=== PATIENT | male | born 1955 | race Caucasian/White ===

== ENCOUNTER 2024-08-02 18:11 | Inpatient (IN) | payer OTHER, SELFPAY ==
[2024-08-02] VITALS (7 sets, daily range): BP systolic 112–148; BP diastolic 68–86; BMI 37.6; BMI 38.7
--- NOTE | 2024-08-02 15:29 | ED.GENMED ---
History of Present Illness
General
Chief Complaint: Skin Problem
Source: patient
Exam Limitations: none
Time Seen by Provider: 08/02/24 15:23
Nursing documentation reviewed up to this point in time: agreed with
History of Present Illness
History of Present Illness:
69-year-old male with past medical history of SARA presenting to the emergency department today with concerns of right great toe redness and swelling he noticed first this morning and has dramatically worsened throughout the day. Now redness is
extending into the calf as well as his knee on the right side. Denies any fevers or systemic symptoms.
Past History
Past History
ED Past Medical History: Fibromyalgia, Other (Sleep apnea, diverticulosis, colon polyps) and Other (obesity)
ED Past Surgical History: Orthopedic
Social History
Tobacco: Non-smoker
Alcohol: Occasional
Drug: None
Personal:
Living: with family
Employment: Employed
Family History
Family History: Other (reviewed and noncontributory)
Phy Exam
Physical Exam
Physical Exam:
GENERAL: Alert , in no apparent distress
EYE: pupils equal and reactive
NECK: Supple, no significant adenopathy.
ENT: o/p clr, mmm.
CARDIAC: Regular rate and rhythm .
LUNGS: Clear breath sounds bilaterally, no acute respiratory distress, no wheezes/rales/rhonchi
ABDOMEN: Soft, without focal tenderness, no r/g, no cvat
NEUROLOGICAL: Alert and oriented, no focal neuro deficits
SKIN: Present circumferentially of the right great toe with extension throughout the dorsal aspect of the foot into the ankle and spreading into the lateral castillo as well as streaking through the anterior knee into the medial thigh.
MUSCULOSKELETAL: No edema, well perfused.
PSYCH: Normal and appropriate interaction.
Course
Orders/Labs/Results
Orders:
Orders
08/02/24 15:27
CR Foot - Right Min 3 Views Urgent
Comment:
Reason For Exam: ghreat toe infection
08/02/24 15:43
Blood Culture Q30M
KATHRYN Source: Blood/Venous
Specimen Description:
Blood Culture Q30M
KATHRYN Source: Blood/Venous
Specimen Description:
08/02/24 15:44
CBC/With Diff [Complete Blood Count/With Diff] Urgent
CMP [Comprehensive Metabolic Panel] Urgent
CRP [C-Reactive Protein] Urgent
ESR [Erythrocyte Sed Rate] Urgent
Lactic Acid Urgent
08/02/24 15:50
Vancomycin [Vancocin] 2,000 mg 0.9% Sodium Chloride 500 ml [Nss] 500 ml IV NOW
08/02/24 15:51
Clindamycin 600 mg/50 ml [Cleocin] 600 mg in 50 ml IV NOW
08/02/24 16:19
Acetaminophen [Tylenol] 1,000 mg .ROUTE .STK-MED ONE
08/02/24 16:23
Acetaminophen [Tylenol] 1,000 mg PO NOW STA
Abnormal Lab Results
08/02/24
15:44
WBC 12.2 H 10^3/uL
(4.8-10.8)
MCH 31.8 H pg
(27.0-31.0)
Abs Immat Gran (auto) 0.1 H 10^3/uL
(0-0.05)
Absolute Neuts (auto) 10.7 H 10^3/uL
(1.4-6.5)
Absolute Lymphs (auto) 0.7 L 10^3/uL
(1.2-3.4)
Absolute Monos (auto) 0.7 H 10^3/uL
(0.1-0.6)
Neutrophils % 88.1 H %
(42.2-75.2)
Lymphocytes % 5.6 L %
(20.5-51.1)
Chloride 108 H mmol/L
(98-107)
BUN 24 H mg/dl
(9-20)
Lactic Acid 2.2 H mmol/L
(0.7-2.0)
Total Bilirubin 1.8 H mg/dl
(0.2-1.3)
C-Reactive Protein 193.40 H mg/L
(0.0-10.00)
08/02/24 15:44
08/02/24 15:44
Vital Signs
Initial and Last Documented VS:
Initial Vital Signs
Temp Pulse Resp BP Pulse Ox
99 F 89 16 148/81 97
08/02/24 15:06 08/02/24 15:06 08/02/24 15:06 08/02/24 15:06 08/02/24 15:06
Last Documented Vital Signs
Temp Pulse Resp BP Pulse Ox
99 F 89 16 123/76 95
08/02/24 15:06 08/02/24 15:06 08/02/24 15:06 08/02/24 16:00 08/02/24 16:00
MDM/Problems Addressed
MDM/Problems Addressed:
6-year-old male presenting to the emergency department with rapid access redness and swelling to the right lower extremity. Initially starting to the right great toe this morning but extending down to the right lateral castillo as well as streaking
into the right middle thigh. Patient generally well-appearing. X-ray without signs of emergent findings slight white count very slight lactic acid elevation. Was given fluids as well as IV antibiotics. CRP was significantly elevated.
Consideration of necrotizing fasciitis was thought of however seem to be unlikely no crepitus no rapid extension here seems to be receding after lighting the redness. Will be admitted for further treatment.
*Critical Care Note
Total Time (30-74mins, 75-104mins- exclusive of procedures): Not Applicable
ED Attending Note
-
Portions of this chart may have been created with voice recognition software.� Occasional wrong word or��sound alike� substitutions may have occurred due to the inherent limitations of voice recognition software.
Discharge Plan
Departure
Patient Disposition: Admit
Date of Disposition: 08/02/24
Time of Disposition: 17:03
Admit to: Med/Surg
Admit to doctor: Deneen
Presentation/result/management discussed w/ accepting MD/DO: Hospitalist
Patient with high blood pressure during this ER visit?: No
Condition: Good
Covid-19: Not Applicable
Discharge Problem:
Cellulitis of leg, right
Prescriptions:
No Action
multivitamin [Multi-Day] 1 EACH tablet
1 ea PO DAILY
ascorbic acid (vitamin C) [Vitamin C] 500 MG tablet
1,000 mg PO DAILY
amino acids [R.N.A.-180] 1 TAB tablet
1 tab PO DAILY
cholecalciferol (vitamin D3) [Vitamin D3] 1,000 UNIT capsule
1,000 unit PO DAILY
coenzyme Q10 [Co Q-10] 100 MG capsule
100 mg PO DAILY
omega 9-pfb-nvs-fish oil 1 EACH capsule
1 ea PO DAILY
glucosamine thomas 2KCl-chondroit 1 EACH tablet
2 ea PO BID
Tribulex
1 tab PO DAILY
Electrolyte Formula Unknown Name
1 tab PO DAILY
levofloxacin 500 MG tablet
500 mg PO DAILY Qty: 5 0RF
Referrals:
NONE,* [Family Provider, Internal Medicine]
Interventions
Interventions:
*Risk Screen - Suicide Last Done: 08/02/24 15:08
*General Assessment Last Done: 08/02/24 15:49
*Neglect/Abuse Screening Last Done: 08/02/24 15:08
*ED- Fall Risk Assessment Last Done: 08/02/24 15:49
*ED COVID-19 Vaccine History Last Done: 08/02/24 15:49
ED-Musculoskeletal Assessment Last Done: 08/02/24 15:47
Discharge Date and Time
Print Language: SAMMARINESE
[2024-08-02 15:51] LABS: % Basophils 0.3 % (0-2); % Eosinophils 0.2 % (0-6); % Immature Granulocytes 0.4 % (0-0.5); % Lymphocytes 5.6 % (20.5-51.1); % Monocytes 5.4 % (1.7-9.3); % Neutrophils 88.1 % (42.2-75.2); Absolute Immature Granulocytes 0.1 10^3/uL (0-0.05); Absolute Lymphocytes 0.7 10^3/uL (1.2-3.4); Absolute Monocytes 0.7 10^3/uL (0.1-0.6); Absolute Neutrophils 10.7 10^3/uL (1.4-6.5); Hematocrit 43.9 % (39.0-52.0); Hemoglobin 15.4 g/dL (13.0-18.0); Mean Corp Hgb Conc. 35.1 g/dL (33.0-37.0); Mean Corpuscular Hgb 31.8 pg (27.0-31.0); Mean Corpuscular Volume 90.7 fL (80.0-94.0); Mean Platelet Volume 8.1 fL (7.4-10.4); Nucleated Red Blood Cells % 0 % (-); Platelet Count 138 10^3/uL (130-400); Red Blood Cell Count 4.84 10^6/uL (4.70-6.10); Red Cell Dist. Width 12.2 % (11.5-14.5); White Blood Cell Count 12.2 10^3/uL (4.8-10.8)
[2024-08-02 16:04] LABS: ALT (SGPT) 24 U/L (0-50); AST (SGOT) 28 U/L (17-59); Albumin 4.1 g/dl (3.5-5.0); Alkaline Phosphatase 43 U/L (38-126); Blood Urea Nitrogen 24 mg/dl (9-20); Calcium 9.3 mg/dl (8.4-10.2); Carbon Dioxide 28 mmol/L (22-30); Chloride 108 mmol/L (98-107); Estimated Creatinine Clearance 88 ml/min; Glucose 95 mg/dl (70-99); Lactic Acid 2.2 mmol/L (0.7-2.0); Sodium 140 mmol/L (135-145); Total Bilirubin 1.8 mg/dl (0.2-1.3); eGFR > 60.00
[2024-08-02] MEDS: TYLENOL 1000 MG PO (16:23)
[2024-08-02 16:25] LABS: Erythrocyte Sed Rate 16 mm/hour (0-20)
[2024-08-02] MEDS: CLEOCIN 50 IV ×2 (16:26→21:40)
[2024-08-02] MEDS: VANCOCIN 540 MG IV (16:56)
--- NOTE | 2024-08-02 17:21 | HPS.HSE ---
Family Physician
-
Family Physician: * NONE
Chief Complaint
-
right great toe redness and swelling
History of Present Illness
69-year-old male with past medical history of SARA and fibromyalgia presenting to the emergency department today with concerns of right great toe redness and swelling. patient noted split at the end of the right great which got healed with
Neosporin, but the swelling persisted.today morning he noticed redness, worsening swelling. the redness extended to calf, knees and thigh throughout the day. denied fever, chills, chest pain, sob. denied abdominal pain,n,v,d. denied dysuria or
hematuria.
Patient received clinda and vancomycin in ER. Admitting for further management
Medical History
Past Medical History
Past Medical History: Reports Other
Additional Past Medical History:
Fibromyalgia, sleep apnea, diverticulosis, colon polyps history of cataracts, history of bilateral retinal detachment
Past Surgical History: Reports Other
Additional Past Surgical History:
Right hand surgery, bilateral cataract surgery, bilateral retinal surgery
Social History
Tobacco: Non-smoker
Alcohol: Occasional
Drug: None
Personal:
Living: With Family
Family History
Family History: Not pertinent
Allergies / Home Medications
Allergies reflects when Allergies were last updated in [facility].
Home Medications with original date entered in [facility]
Allergy/Medication List:
Allergies
Allergy/AdvReac Type Severity Reaction Status Date / Time
amoxicillin Allergy Mild Hives Verified 08/02/24 15:08
Home Medications
Electrolyte Formula Unknown Name 6 tab PO DAILY 11/19/15
Tribulex 2 tab PO DAILY 11/19/15
amino acids (R.N.A.-180 tablet) 1 tab PO DAILY 11/19/15
ascorbic acid (vitamin C) 500 mg tablet (Vitamin C) 1,000 mg PO DAILY 11/19/15
cholecalciferol (vitamin D3) 25 mcg (1,000 unit) capsule (Vitamin D3) 1,000 unit PO BID 11/19/15
coenzyme Q10 100 mg capsule (Co Q-10) 100 mg PO BID 11/19/15
glucosamine sulf dipotassium Cl 500 mg-chondroitin sulf 400 mg tablet 2 tab PO BID 11/19/15
fexofenadine 180 mg tablet 180 mg PO DAILYPRN PRN allergies 08/02/24
naproxen sodium 220 mg tablet (Aleve) 440 mg PO DAILYPRN PRN mild pain 08/02/24
omega-3 fatty acids-fish oil 684 mg-1,200 mg capsule,delayed release 1 cap PO DAILY 08/02/24
therapeutic multivitamin 1 tab PO DAILY 08/02/24
Review of Systems
-
Constitutional: Reports No Symptoms
EENT: Reports No Symptoms
Respiratory: Reports No Symptoms
Cardiac: Reports No Symptoms
Abdomen/GI: Reports No Symptoms
: Reports No Symptoms
Musculoskeletal: Reports No Symptoms
Skin: Reports Other (Right great toe swelling, redness)
Neurological: Reports No Symptoms
Endocrine: Reports No Symptoms
Hematologic/Lymphatic: Reports No Symptoms
Psych: Reports No Symptoms
Physical Exam
Vital Signs
Vital Signs
Temp Pulse Resp BP Pulse Ox
99 F 89 16 122/71 97
08/02/24 15:06 08/02/24 15:06 08/02/24 15:06 08/02/24 17:00 08/02/24 17:00
Physical Exam
General: Well Developed, Well Nourished and No Apparent Distress
HEENT: NormoCephalic, Moist mucous membranes and Atraumatic
Respiratory: Clear
Cardiac: S1/S2 and Regular Rhythm; No Murmur or Rub
GI: Soft, Non Tender, Non Distended and Normal Bowel Sounds; No Organomegaly
Rectal: Deferred by Provider
Musculoskeletal: No Clubbing, No Cyanosis and No Edema
Skin: Rash and Other (Right great toe swelling, redness extending from the toe to the thigh)
Neuro: AO x 3 and Nonfocal/grossly intact
Psych: Calm
Laboratory Results
-
08/02/24 15:44
08/02/24 15:44
Laboratory Results
Lactic Acid 2.2 mmol/L (0.7-2.0) H 08/02/24 15:44
Total Bilirubin 1.8 mg/dl (0.2-1.3) H 08/02/24 15:44
AST 28 U/L (17-59) 08/02/24 15:44
ALT 24 U/L (0-50) 08/02/24 15:44
Alkaline Phosphatase 43 U/L (38-126) 08/02/24 15:44
Data Reviewed
-
Lab Data: Labs Reviewed by me
Impression/Plan
-
# Right lower extremity soft tissue infection
- Sepsis as evident by WBC 12.2, lactic 2.2, CRP 193.40
- Foot x-ray pending
- IV clindamycin continued
- Tylenol as needed for fever or pain
# Obstructive sleep apnea on CPAP
# History of fibromyalgia
# DVT prophylaxis
- Lovenox subcu
# CODE STATUS
- Full code
--- NOTE | 2024-08-02 18:06 | W.PN.UPDATE ---
Update Note
Progress Note Update
This is an addendum to H&P written by Magdalena Mar on 08/02/2024.� Patient seen and examined independently with DRY KILN OPERATOR.
69-year-old male past medical history of neuropathy of second toes bilaterally, obstructive sleep apnea, fibromyalgia presenting with right great toe redness and swelling spreading up to the knee today since having a skin aplit on his right toe a
week ago.� No fever.
CRP of 193.
Foot x-ray pending.
Patient with cellulitis of right lower extremity.� Given vancomycin and clindamycin.� Continue clindamycin.
[2024-08-02] MEDS: LOVENOX 40 MG SC (19:32)
--- NOTE | 2024-08-02 20:13 | PTCARENOTE ---
Assumed care of pt from previous nurse. pt denies pain. RLE redness and edema noted, markings present, no change noted per dayshift nurse. Pt call verde is within reach, pt rings keron. will cont to monitor.
[2024-08-03] MEDS: ULTRAM 25 MG PO ×3 (03:40→22:39)
[2024-08-03] MEDS: CLEOCIN 50 IV ×4 (03:57→21:42)
[2024-08-03 07:00] VITALS: BP 126/91
--- NOTE | 2024-08-03 08:32 | W.PN.HOSP.TC ---
Today's Communication/Plan
-
see plan
Assessment / Plan
Assessment / Plan
Gen: NAD, AAOx3.
Eyes: EOMI, PERRLA, no scleral icterus.
Neck: supple.
CV: RRR, +S1/S2, no m/r/g.
Resp: CTAB, no rales, wheezes, or rhonchi.
Abd: +BS, soft, NT, ND
Skin: Right great toe and right lower extremity cellulitis
Neuro: CN 2-12 intact, non-focal.
Psych: Normal mood and affect.
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 Progressed. Mild hallux valgus deformity. Stable.
Sepsis due to RLE cellulitis:
-cont Clindamycin
-c/s ID
-follow BCxs
Other problems:
SARA on CPAP
Obesity due to excess calories
Fibromyalgia
FULL/Lovenox
Anticipated Discharge: 24 - 48 hours
Subjective/Interval History
-
Date of Service: August 03, 2024
Patient states right lower extremity cellulitis has progressed approximately into his right leg. He now has a stinging sensation in his right great toe and right lower extremity.
Objective Data
-
Vital Signs:
Vital Signs
Temp Pulse Resp BP Pulse Ox
99.5 F 121 18 126/91 96
08/03/24 07:00 08/03/24 07:00 08/03/24 07:00 08/03/24 07:00 08/03/24 07:00
[2024-08-03] MEDS: TYLENOL 650 MG PO (09:15)
--- NOTE | 2024-08-03 11:17 | CM ---
Patient seen bedside, initial assessment completed. Patient is a 69-year-old male with past medical history of SARA and fibromyalgia presenting to the emergency department today with concerns of right great toe redness and swelling.
Patient resides w/ spouse in a singe story rancher style home, 8 steps to enter. Independent w/ ambulation and ADLs. Patient has a CPAP that he uses at night supplied by [facility]. Denies SNF/HC hx. OP therapy in the past.
Address, point of contact and insurance verified
PCP: Patient does not have a PCP at this time. Former PCP moved to [place]. Spouse located a new PCP in [place] that patient will consider
Pharmacy: [facility]
Plan: Home, no needs anticipated
--- NOTE | 2024-08-03 11:53 | CON.ID ---
Consultation
-
Date/Time Consultation Requested: August 03, 2024 [id number]
Date/Time Consultation Performed: August 03, 2024 1155
Requesting Provider: Dr. Conor Low
Performing Provider: Dr. Carline Ceja
Reason for Consultation: Cellulitis
Chief Complaint / Past History
Chief Complaint
Right toe and leg redness.
History of Present Illness
69-year-old male with history of sleep apnea who presented to the hospital on August 02 due to redness streaking from his toe all the way up to his knee. He reports he has dry skin and developed a fissure on the plantar side of his right great toe
last week. He applied Neosporin to the crack which eventually healed. However, the big toe started to become red and swollen. Yesterday morning, the redness extended from the toe up his leg to his knee. He therefore came to the ER.
White count was 12.2. Foot x-ray showed osteoarthritis of the first MTP joint. Patient received vancomycin and clindamycin in the ER. He is currently on clindamycin. Patient denies fevers or chills. He does walk barefoot at home.
Past History
Additional Past Medical History:
Sleep apnea on CPAP
Neuropathy of bilateral toes
Fibromyalgia
Diverticulosis
Additional Past Surgical History:
Bilateral retinal detachment repair
Right hand surgery
Allergy History:
amoxicillin Allergy (Mild, Verified 08/02/24 15:08)
20 years ago, mild rash
Medications Reviewed: Yes
Current Antibiotics:
Clindamycin
Social History
Tobacco: Non-Smoker
Alcohol: Occasional
Drug: None
Personal:
Employment: Employed (line driver)
Family History
Family History: Not Pertinent
Review of Systems
Review of Systems
General: Negative Fever, Chills or Change in Appetite
Cardiovascular: Negative Chest Pain or Dyspnea
Respiratory: Negative Dyspnea or Cough
Gasteroenterology: Negative Nausea, Vomiting or Diarrhea
Genital / Urological: Negative Dysuria or Flank Pain
Endocrine: Negative Weakness
All systems: All other systems were reviewed and were negative
Vital Signs
Temp Pulse Resp BP Pulse Ox
99.5 F 121 18 126/91 96
08/03/24 07:00 08/03/24 07:00 08/03/24 07:00 08/03/24 07:00 08/03/24 07:00
Physical Exam
Physical Exam
Constitutional: No Acute Distress and Obese
Eyes: No Conjunctival Hemorrhage and Sclera Anicteric
Cardiovascular: Regular Rate and S1/S2
Pulmonary: Clear
Gastrointestinal: Soft, Non Tender, Non Distended and Normal Bowel Sounds
Genito-Urinary: Negative Suprapubic Tenderness or CVA Tenderness
Extremities: Edema (RLE foot to castillo 3+) and Erythema (Right great toe edematous, erythematous to forefoot to castillo with dark red patchy erythema up to knee, + warmth)
Neurological: AO x 3
Lab / Diagnostic Study Results
08/02/24 15:44
08/02/24 15:44
Abs Immat Gran (auto) 0.1 10^3/uL (0-0.05) H 08/02/24 15:44
Absolute Neuts (auto) 10.7 10^3/uL (1.4-6.5) H 08/02/24 15:44
Absolute Lymphs (auto) 0.7 10^3/uL (1.2-3.4) L 08/02/24 15:44
Absolute Monos (auto) 0.7 10^3/uL (0.1-0.6) H 08/02/24 15:44
Absolute Basos (auto) 0.0 10^3/uL (0-0.2) 08/02/24 15:44
Immature Gran % 0.4 % (0-0.5) 08/02/24 15:44
Neutrophils % 88.1 % (42.2-75.2) H 08/02/24 15:44
Lymphocytes % 5.6 % (20.5-51.1) L 08/02/24 15:44
Monocytes % 5.4 % (1.7-9.3) 08/02/24 15:44
Eosinophils % 0.2 % (0-6) 08/02/24 15:44
Basophils % 0.3 % (0-2) 08/02/24 15:44
ESR 16 mm/hour (0-20) 08/02/24 15:44
Lactic Acid 2.2 mmol/L (0.7-2.0) H 08/02/24 15:44
C-Reactive Protein 193.40 mg/L (0.0-10.00) H 08/02/24 15:44
Microbiology Results
Micro:
08/02/24 15:43 Blood Culture - Pending
Blood/Venous
08/02/24 15:43 Blood Culture - Pending
Blood/Venous
08/02/24 Foot XRAY: Osteoarthritis of the first MTP joint. Progressed.
Assessment / Plan
# Severe non-purulent cellulitis of RLE
# Leukocytosis
# hx mild PCN allergy
- Suspect Group A strep.
- Add ceftriaxone 2g IV q24.
- Can continue short course IV clindamycin for now.
- Follow clinically.
[2024-08-03] MEDS: ROCEPHIN 2000 MG IV (13:17)
[2024-08-03] MEDS: STERILE WATER FOR INJECTION 20 ML IV (13:17)
[2024-08-03 15:00] VITALS: BP 145/78
[2024-08-03] MEDS: LOVENOX 40 MG SC (17:16)
[2024-08-03 23:06] VITALS: BP 124/82
[2024-08-04] MEDS: CLEOCIN 50 IV ×2 (03:31→10:32)
[2024-08-04 07:00] VITALS: BP 126/85
[2024-08-04 07:29] LABS: Hematocrit 41.4 % (39.0-52.0); Hemoglobin 13.8 g/dL (13.0-18.0); Mean Corp Hgb Conc. 33.3 g/dL (33.0-37.0); Mean Corpuscular Hgb 31.7 pg (27.0-31.0); Mean Platelet Volume 8.9 fL (7.4-10.4); Platelet Count 159 10^3/uL (130-400); Red Blood Cell Count 4.36 10^6/uL (4.70-6.10); Red Cell Dist. Width 12.3 % (11.5-14.5); White Blood Cell Count 8.1 10^3/uL (4.8-10.8)
[2024-08-04 08:19] LABS: Blood Urea Nitrogen 16 mg/dl (9-20); Calcium 8.4 mg/dl (8.4-10.2); Carbon Dioxide 27 mmol/L (22-30); Chloride 107 mmol/L (98-107); Estimated Creatinine Clearance 98 ml/min; Glucose 105 mg/dl (70-99); Sodium 139 mmol/L (135-145); eGFR > 60.00
--- NOTE | 2024-08-04 11:29 | W.PN.ID1 ---
Addendum entered and electronically signed by Carline Ceja MD 08/04/24 12:50:
Patient pulled an engorged tick from the back of his thigh. I examined the tick in the container. Could be an adult dog tick, less likely adult make Ixodes. Will give one dose of doxycycline 200mg po x 1.
Original Note:
Date of Service
Date of Service: August 04, 2024
Today's Communication
See below.
Assessment / Plan
# Severe non-purulent cellulitis of RLE, improved
. source from right great toe skin fissure
# Leukocytosis resolved
# Cough from allergy
# hx mild PCN allergy
- Suspect Group A strep.
- Continue ceftriaxone 2g IV q24 (d2)
- DC IV clindamycin (d3)
- Knee high ramakrishna-wrap compression
-Ordered cetirizine for allergy.
Chief Complaint
-: Cellulitis
Subjective / Review of Systems
+ discomfort ambulating.
+ dry cough from allergies
Vital Signs / Physical Exam
Vital Signs
Vital Signs
Temp Pulse Resp BP Pulse Ox
98.2 F 78 20 126/85 98
08/04/24 07:00 08/04/24 07:00 08/04/24 07:00 08/04/24 07:00 08/04/24 07:15
Physical Exam
Constitutional: No Acute Distress and Obese
Cardiovascular: Regular Rate and S1/S2
Pulmonary: Clear
Gastrointestinal: Soft, Non Tender and Non Distended
Extremities: Edema (RLE 3+ edema) and Erythema (R foot to knee - erythema now darker, receding from line; toe not longer erythematous)
Skin: Dry (R plantar foot)
Neurological: AO x 3
Objective Data
Lab Data
Lab Results
08/04/24 06:36
08/04/24 06:36
ESR 16 mm/hour (0-20) 08/02/24 15:44
Estimated Creat Clear 98 ml/min 08/04/24 06:36
Lactic Acid 2.2 mmol/L (0.7-2.0) H 08/02/24 15:44
Total Bilirubin 1.8 mg/dl (0.2-1.3) H 08/02/24 15:44
AST 28 U/L (17-59) 08/02/24 15:44
ALT 24 U/L (0-50) 08/02/24 15:44
Alkaline Phosphatase 43 U/L (38-126) 08/02/24 15:44
C-Reactive Protein 193.40 mg/L (0.0-10.00) H 08/02/24 15:44
Most recent labs reviewed.
Micro Results:
08/02/24 15:43 Blood Culture - Preliminary
Blood/Venous No Growth in 24 hours- Final report to follow
08/02/24 15:43 Blood Culture - Preliminary
Blood/Venous No Growth in 24 hours- Final report to follow
08/02/24 Foot XRAY: Osteoarthritis of the first MTP joint. Progressed.
--- NOTE | 2024-08-04 11:44 | W.PN.HOSP.TC ---
Today's Communication/Plan
-
Continue IV antibiotics.
Assessment / Plan
Assessment / Plan
Physical exam:
General: Acutely ill
HEENT: Normocephalic, Atraumatic and Moist Mucous Membranes
Respiratory: Clear to Auscultation; Negative Wheezes, Rales or Rhonchi
Cardiac: Regular Rhythm and S1/S2
GI: Soft, Nontender and Nondistended
Musculoskeletal: Right lower extremity erythema and tenderness from right great toe up to two thirds of the distal leg, warmth and tenderness. No Clubbing, No Cyanosis
Neuro: Awake, Alert and Oriented, no neurological deficit
Psych: Calm
A/P:
Sepsis due to right lower extremity cellulitis:
Continue IV ceftriaxone 2 gr daily
Discontinue clindamycin
WBC from 12.2 down to 8.1 today
Compression therapy and elevation of leg
Discussed with over the phone, Adwoa
Tick bite:
Oral doxycycline 200 mg oral x 1
Discussed with ID
DVT prophylaxis:
Lovenox SQ
Other medical problems:
SARA-continue CPAP
Obesity-lifestyle changes modifications
Fibromyalgia
CODE STATUS:
Full code
Anticipated Discharge: 24 - 48 hours
Subjective/Interval History
-
Date of Service: August 04, 2024
Patient complains of discomfort on right lower extremity. He tells me he pulled a tick from his leg today and he has it on the container today. Afebrile
Objective Data
-
Labs:
Laboratory Results
08/04/24
06:36
WBC 8.1
Hgb 13.8
Hct 41.4
Plt Count 159
Sodium 139
Potassium 4.0
Chloride 107
Carbon Dioxide 27
BUN 16
Creatinine 1.0
Glucose 105 H
Calcium 8.4
Vital Signs:
Vital Signs
Temp Pulse Resp BP Pulse Ox
98.2 F 78 20 126/85 98
08/04/24 07:00 08/04/24 07:00 08/04/24 07:00 08/04/24 07:00 08/04/24 07:15
I&O
08/03/24 08/04/24 08/05/24
06:59 06:59 06:59
Intake Total 1140 / 1140
Balance 1140 / 1140
[2024-08-04] MEDS: ZYRTEC 10 MG PO (12:41)
[2024-08-04] MEDS: LAC HYDRIN, AM LACTIN LOTION 1 APPLIC TOPICAL ×2 (12:41→19:20)
[2024-08-04] MEDS: VIBRAMYCIN 200 MG PO (13:19)
[2024-08-04] MEDS: STERILE WATER FOR INJECTION 20 ML IV (13:20)
[2024-08-04] MEDS: ROCEPHIN 2000 MG IV (13:20)
[2024-08-04 15:00] VITALS: BP 130/87
--- NOTE | 2024-08-04 15:33 | W.PN.UPDATE ---
Update Note
Progress Note Update
Pt c/o right medial thigh pain and redness.
Exam: Right upper medial thigh large area of erythema.
Add linezolid 600mg po bid for gram positive coverage and toxin inhibitor properties.
[2024-08-04] MEDS: ULTRAM 25 MG PO (15:42)
[2024-08-04] MEDS: ZYVOX 600 MG PO ×2 (16:58→22:18)
[2024-08-04] MEDS: LOVENOX 40 MG SC (17:02)
[2024-08-04] MEDS: TYLENOL 650 MG PO (22:18)
[2024-08-04 23:02] VITALS: BP 134/84
[2024-08-05 07:00] VITALS: BP 147/87
[2024-08-05] MEDS: LAC HYDRIN, AM LACTIN LOTION 1 APPLIC TOPICAL ×2 (08:08→19:19)
[2024-08-05] MEDS: ZYVOX 600 MG PO ×2 (08:09→19:19)
[2024-08-05] MEDS: ZYRTEC 10 MG PO (08:09)
--- NOTE | 2024-08-05 08:47 | W.PN.HOSP.TC ---
Addendum entered and electronically signed by Robert Mack MD 08/05/24 17:55:
Updated over the phone today
Original Note:
Today's Communication/Plan
-
Continue antibiotics
Assessment / Plan
Assessment / Plan
Physical exam:
General: Acutely ill
HEENT: Normocephalic, Atraumatic and Moist Mucous Membranes
Respiratory: Clear to Auscultation; Negative Wheezes, Rales or Rhonchi
Cardiac: Regular Rhythm and S1/S2
GI: Soft, Nontender and Nondistended
Musculoskeletal: Right lower extremity erythema and tenderness from right great toe up to two thirds of the distal leg, warmth and tenderness. No Clubbing, No Cyanosis
Neuro: Awake, Alert and Oriented, no neurological deficit
Psych: Calm
A/P:
Sepsis due to right lower extremity cellulitis:
Continue IV ceftriaxone 2 gr daily
Discontinued clindamycin by ID
Started on Zyvox 600 mg po bid per ID yesterday
WBC from 12.2 down to 8.1 yesterday
Compression therapy and elevation of leg
Discussed with over the phone yesterday, Adwoa
Tick bite:
Oral doxycycline 200 mg oral x 1
Discussed with ID
DVT prophylaxis:
Lovenox SQ
Other medical problems:
SARA-continue CPAP
Obesity-lifestyle changes modifications
Fibromyalgia
CODE STATUS:
Full code
Anticipated Discharge: 24 - 48 hours
Subjective/Interval History
-
Date of Service: August 05, 2024
Patient still have bright erythema and receding in the distal part but not so much proximally. Afebrile
Objective Data
-
Vital Signs:
Vital Signs
Temp Pulse Resp BP Pulse Ox
97.9 F 78 20 147/87 96
08/05/24 07:00 08/05/24 07:00 08/05/24 07:00 08/05/24 07:00 08/05/24 07:00
I&O
08/04/24 08/05/24 08/06/24
06:59 06:59 06:59
Intake Total 1140 / 1140 960 / 960
Balance 1140 / 1140 960 / 960
--- NOTE | 2024-08-05 10:28 | W.PN.ID1 ---
Date of Service
Date of Service: August 05, 2024
Today's Communication
Continue linezolid and ceftriaxone.
Assessment / Plan
# Severe non-purulent cellulitis of RLE
. source from right great toe skin fissure
# Leukocytosis resolved
# hx mild PCN allergy
- Suspect Group A strep.
- Continue Linezolid 600mg po bid (d2) for gram positive coverage and toxin inhibitor properties.
- Continue ceftriaxone 2g IV q24 (d3) for now
- Knee high ramakrishna-wrap compression
# Engorged tick exposure
- s/p prophylactic doxycycline 200mg po x 1 on 08/04
- Discussed importance of insect prevention.
# Cough from allergy
- improved on cetirizine
Chief Complaint
-: Cellulitis
Subjective / Review of Systems
Leg not as painful.
Cough better on Zyrtec
Vital Signs / Physical Exam
Vital Signs
Vital Signs
Temp Pulse Resp BP Pulse Ox
97.9 F 78 20 147/87 96
08/05/24 07:00 08/05/24 07:00 08/05/24 07:00 08/05/24 07:00 08/05/24 07:00
Physical Exam
Constitutional: No Acute Distress
Pulmonary: Clear
Gastrointestinal: Non Tender, Non Distended and Normal Bowel Sounds
Extremities: Edema (RLE decreased edema) and Erythema (RLE dark red patchy erythema big toe, forefoot, castillo, medial thigh receding from marked line. )
Neurological: AO x 3
Objective Data
Lab Data
Lab Results
08/04/24 06:36
08/04/24 06:36
ESR 16 mm/hour (0-20) 08/02/24 15:44
Estimated Creat Clear 98 ml/min 08/04/24 06:36
Lactic Acid 2.2 mmol/L (0.7-2.0) H 08/02/24 15:44
Total Bilirubin 1.8 mg/dl (0.2-1.3) H 08/02/24 15:44
AST 28 U/L (17-59) 08/02/24 15:44
ALT 24 U/L (0-50) 08/02/24 15:44
Alkaline Phosphatase 43 U/L (38-126) 08/02/24 15:44
C-Reactive Protein 193.40 mg/L (0.0-10.00) H 08/02/24 15:44
Most recent labs reviewed.
Micro Results:
08/02/24 15:43 Blood Culture - Preliminary
Blood/Venous No Growth in 48 hours- Final report to follow
08/02/24 15:43 Blood Culture - Preliminary
Blood/Venous No Growth in 48 hours- Final report to follow
08/02/24 Foot XRAY: Osteoarthritis of the first MTP joint. Progressed.
[2024-08-05] MEDS: ULTRAM 25 MG PO (12:03)
[2024-08-05] MEDS: STERILE WATER FOR INJECTION 20 ML IV (13:22)
[2024-08-05] MEDS: ROCEPHIN 2000 MG IV (13:23)
--- NOTE | 2024-08-05 14:06 | CM ---
CM reviewed chart, patient seen bedside. Patient remains on IV antibiotics. Patient plan remains return home with when stable. CM will continue to follow for all discharge planning needs.
Plan; home with , watch for IV antibiotic needs
[2024-08-05 14:51] VITALS: BP 141/76
[2024-08-05] MEDS: LOVENOX 40 MG SC (17:04)
[2024-08-05] MEDS: TYLENOL 650 MG PO ×2 (17:13→22:01)
[2024-08-05] MEDS: MYLICON 80 MG PO (19:46)
[2024-08-05 21:29] VITALS: BP 124/89
[2024-08-05] MEDS: PEPCID 20 MG IV (21:45)
[2024-08-05] MEDS: NSS (PRESERVATIVE FREE) 8 ML IV (21:46)
[2024-08-05 23:21] VITALS: BP 120/84
[2024-08-06 07:00] VITALS: BP 137/92
[2024-08-06 07:23] LABS: % Basophils 0.4 % (0-2); % Eosinophils 3.3 % (0-6); % Immature Granulocytes 0.4 % (0-0.5); % Lymphocytes 14.2 % (20.5-51.1); % Monocytes 11.9 % (1.7-9.3); % Neutrophils 69.8 % (42.2-75.2); Absolute Eosinophils 0.2 10^3/uL (0-0.7); Absolute Monocytes 0.9 10^3/uL (0.1-0.6); Absolute Neutrophils 5.1 10^3/uL (1.4-6.5); Hematocrit 41.5 % (39.0-52.0); Hemoglobin 14.1 g/dL (13.0-18.0); Mean Corpuscular Hgb 31.3 pg (27.0-31.0); Mean Corpuscular Volume 92.2 fL (80.0-94.0); Mean Platelet Volume 8.6 fL (7.4-10.4); Nucleated Red Blood Cells % 0 % (-); Platelet Count 173 10^3/uL (130-400); Red Cell Dist. Width 12.1 % (11.5-14.5); White Blood Cell Count 7.3 10^3/uL (4.8-10.8)
[2024-08-06] MEDS: LAC HYDRIN, AM LACTIN LOTION 1 APPLIC TOPICAL ×2 (07:43→21:11)
[2024-08-06] MEDS: ZYVOX 600 MG PO ×2 (07:44→21:12)
[2024-08-06] MEDS: TYLENOL 650 MG PO ×3 (07:44→22:32)
[2024-08-06 07:50] LABS: Blood Urea Nitrogen 18 mg/dl (9-20); Calcium 8.7 mg/dl (8.4-10.2); Carbon Dioxide 26 mmol/L (22-30); Chloride 108 mmol/L (98-107); Estimated Creatinine Clearance 109 ml/min; Glucose 100 mg/dl (70-99); Sodium 139 mmol/L (135-145); eGFR > 60.00
[2024-08-06] MEDS: ZYRTEC 10 MG PO (07:50)
--- NOTE | 2024-08-06 10:46 | W.PN.ID1 ---
Date of Service
Date of Service: August 06, 2024
Today's Communication
Continue linezolid.
DC ceftriaxone.
Assessment / Plan
# Severe non-purulent cellulitis of RLE, improving
. source from right great toe skin fissure
# Leukocytosis resolved
# hx mild PCN allergy
- Suspect Group A strep.
- Continue Linezolid 600mg po bid (d3)
- DC ceftriaxone
- Knee high ramakrishna-wrap compression
- Moisturize dry foot.
# Engorged tick exposure
- s/p prophylactic doxycycline 200mg po x 1 on 08/04
- Discussed importance of insect prevention.
# Cough from allergy
- improved on cetirizine
Chief Complaint
-: Cellulitis
Subjective / Review of Systems
Leg is better, less pain.
Vital Signs / Physical Exam
Vital Signs
Vital Signs
Temp Pulse Resp BP Pulse Ox
98 F 78 17 137/92 100
08/06/24 07:00 08/06/24 07:00 08/06/24 07:00 08/06/24 07:00 08/06/24 07:00
Physical Exam
Constitutional: No Acute Distress and Comfortable
Eyes: Sclera Anicteric
Cardiovascular: Regular Rate and S1/S2
Extremities: Edema (RLE decreasing edema) and Erythema (RLE thigh erythema resolving, leg and forefoot erythema decreasing)
Neurological: AO x 3
Objective Data
Lab Data
Lab Results
08/06/24 06:12
08/06/24 06:12
ESR 16 mm/hour (0-20) 08/02/24 15:44
Estimated Creat Clear 109 ml/min 08/06/24 06:12
Lactic Acid 2.2 mmol/L (0.7-2.0) H 08/02/24 15:44
Total Bilirubin 1.8 mg/dl (0.2-1.3) H 08/02/24 15:44
AST 28 U/L (17-59) 08/02/24 15:44
ALT 24 U/L (0-50) 08/02/24 15:44
Alkaline Phosphatase 43 U/L (38-126) 08/02/24 15:44
C-Reactive Protein 193.40 mg/L (0.0-10.00) H 08/02/24 15:44
Most recent labs reviewed.
Micro Results:
08/02/24 15:43 Blood Culture - Preliminary
Blood/Venous No Growth in 72 hours- Final report to follow
08/02/24 15:43 Blood Culture - Preliminary
Blood/Venous No Growth in 72 hours- Final report to follow
08/02/24 Foot XRAY: Osteoarthritis of the first MTP joint. Progressed.
--- NOTE | 2024-08-06 11:13 | W.PN.HOSP.TC ---
Today's Communication/Plan
-
Antibiotics
Assessment / Plan
Assessment / Plan
Physical exam:
General: Acutely ill
HEENT: Normocephalic, Atraumatic and Moist Mucous Membranes
Respiratory: Clear to Auscultation; Negative Wheezes, Rales or Rhonchi
Cardiac: Regular Rhythm and S1/S2
GI: Soft, Nontender and Nondistended
Musculoskeletal: Right lower extremity erythema and tenderness improving from right great toe up to two thirds of the distal leg, warmth and tenderness. No Clubbing, No Cyanosis
Neuro: Awake, Alert and Oriented, no neurological deficit
Psych: Calm
A/P:
Sepsis due to right lower extremity cellulitis:
Continue on Zyvox 600 mg po bid per ID
Discontinue IV ceftriaxone and clindamycin per ID today
WBC from 12.2 down to 7.3 today
Compression therapy and elevation of leg
Discussed with over the phone yesterday, Adwoa
Tick bite:
Oral doxycycline 200 mg oral x 1
Discussed with ID
DVT prophylaxis:
Lovenox SQ
Other medical problems:
SARA-continue CPAP
Obesity-lifestyle changes modifications
Fibromyalgia
CODE STATUS:
Full code
Anticipated Discharge: Within 24 hours
Subjective/Interval History
-
Date of Service: August 06, 2024
Patient feels today erythema and pain feels improvement for the first time. No nausea vomiting or diarrhea. Moving bowels okay. Afebrile
Objective Data
-
Labs:
Laboratory Results
08/06/24
06:12
WBC 7.3
Hgb 14.1
Hct 41.5
Plt Count 173
Sodium 139
Potassium 4.0
Chloride 108 H
Carbon Dioxide 26
BUN 18
Creatinine 0.9
Glucose 100 H
Calcium 8.7
Vital Signs:
Vital Signs
Temp Pulse Resp BP Pulse Ox
98 F 78 17 137/92 100
08/06/24 07:00 08/06/24 07:00 08/06/24 07:00 08/06/24 07:00 08/06/24 07:00
I&O
08/05/24 08/06/24 08/07/24
06:59 06:59 06:59
Intake Total 960 / 960 960 / 960
Balance 960 / 960 960 / 960
[2024-08-06 15:00] VITALS: BP 125/76
[2024-08-06] MEDS: LOVENOX 40 MG SC (17:34)
[2024-08-06 23:30] VITALS: BP 130/76
[2024-08-07] MEDS: TYLENOL 650 MG PO (05:58)
[2024-08-07 07:00] VITALS: BP 133/77
--- NOTE | 2024-08-07 07:22 | W.PN.HOSP.TC ---
Today's Communication/Plan
-
ID reeval. Discharge planning
Assessment / Plan
Assessment / Plan
Physical exam:
General: Acutely ill
HEENT: Normocephalic, Atraumatic and Moist Mucous Membranes
Respiratory: Clear to Auscultation; Negative Wheezes, Rales or Rhonchi
Cardiac: Regular Rhythm and S1/S2
GI: Soft, Nontender and Nondistended
Musculoskeletal: Right lower extremity erythema and tenderness improving from right great toe up to two thirds of the distal leg, warmth and tenderness. No Clubbing, No Cyanosis
Neuro: Awake, Alert and Oriented, no neurological deficit
Psych: Calm
A/P:
Sepsis due to right lower extremity cellulitis:
Continue on Zyvox 600 mg po bid per ID
Discontinue IV ceftriaxone and clindamycin per ID
WBC from 12.2 down to 7.3
Compression therapy and elevation of leg
Discussed with over the phone prior, Adwoa
Discharge planning once cleared by ID
Tick bite:
Oral doxycycline 200 mg oral x 1
Discussed with ID
DVT prophylaxis:
Lovenox SQ
Other medical problems:
SARA-continue CPAP
Obesity-lifestyle changes modifications
Fibromyalgia
CODE STATUS:
Full code
Anticipated Discharge: Today
Subjective/Interval History
-
Date of Service: August 07, 2024
Patient has some discomfort in his calf area but not that significant. Afebrile. No nausea vomiting or diarrhea.
Objective Data
-
Vital Signs:
Vital Signs
Temp Pulse Resp BP Pulse Ox
98.6 F 69 16 130/76 96
08/06/24 23:30 08/06/24 23:30 08/06/24 23:30 08/06/24 23:30 08/06/24 23:30
I&O
08/06/24 08/07/24 08/08/24
06:59 06:59 06:59
Intake Total 960 / 960 1140 / 1140
Balance 960 / 960 1140 / 1140
[2024-08-07] MEDS: ZYRTEC 10 MG PO (07:40)
[2024-08-07] MEDS: ZYVOX 600 MG PO (07:40)
[2024-08-07] MEDS: LAC HYDRIN, AM LACTIN LOTION 1 APPLIC TOPICAL (07:40)
--- NOTE | 2024-08-07 07:45 | PTCARENOTE ---
Pt right leg still red, warm and with swelling . Pt reports 'looks better but hurts more today than yesterday' Received Tylenol and did not want anything stronger at this time. LE elevation encouraged. Out of bed in chair with call verde in
reach.
--- NOTE | 2024-08-07 10:19 | W.PN.ID1 ---
Date of Service
Date of Service: August 07, 2024
Today's Communication
Can dc home on Linezolid 600mg po bid (d4) through 08/17/24.
Avoid tyramine-rich food products while on linezolid.
Assessment / Plan
# Severe non-purulent cellulitis of RLE, improving
. source from right great toe skin fissure
# Leukocytosis resolved
# hx mild PCN allergy
- Suspect Group A strep.
- Knee high ramakrishna-wrap compression
- Moisturize dry foot.
- Can dc home on Linezolid 600mg po bid (d4) through 08/17/24.
Avoid tyramine-rich food products while on linezolid.
# Engorged tick exposure
- s/p prophylactic doxycycline 200mg po x 1 on 08/04
- Discussed importance of insect prevention.
Chief Complaint
-: Cellulitis
Subjective / Review of Systems
Feeling better.
Vital Signs / Physical Exam
Vital Signs
Vital Signs
Temp Pulse Resp BP Pulse Ox
97.9 F 68 20 133/77 94
08/07/24 07:00 08/07/24 07:00 08/07/24 07:00 08/07/24 07:00 08/07/24 07:00
Physical Exam
Constitutional: No Acute Distress and Comfortable
Eyes: Sclera Anicteric
Cardiovascular: Regular Rate and S1/S2
Extremities: Edema (RLE decreasing edema) and Erythema (RLE thigh erythema resolved , Right leg and forefoot dark erythema smaller/decreasing)
Neurological: AO x 3
Objective Data
Lab Data
Lab Results
08/06/24 06:12
08/06/24 06:12
ESR 16 mm/hour (0-20) 08/02/24 15:44
Estimated Creat Clear 109 ml/min 08/06/24 06:12
Lactic Acid 2.2 mmol/L (0.7-2.0) H 08/02/24 15:44
Total Bilirubin 1.8 mg/dl (0.2-1.3) H 08/02/24 15:44
AST 28 U/L (17-59) 08/02/24 15:44
ALT 24 U/L (0-50) 08/02/24 15:44
Alkaline Phosphatase 43 U/L (38-126) 08/02/24 15:44
C-Reactive Protein 193.40 mg/L (0.0-10.00) H 08/02/24 15:44
Most recent labs reviewed.
Micro Results:
08/02/24 15:43 Blood Culture - Preliminary
Blood/Venous No Growth in 4 days- Final report to follow
08/02/24 15:43 Blood Culture - Preliminary
Blood/Venous No Growth in 4 days- Final report to follow
08/02/24 Foot XRAY: Osteoarthritis of the first MTP joint. Progressed.
Care Review
Plan reviewed with: Physician (Dr. Mack)
--- NOTE | 2024-08-07 11:03 | W.DCSUMMARY ---
Discharge Summary
Discharge Data
Date of Admission: 08/02/24
Date of Discharge: 08/07/24
Total time spent discharging patient (in min): 35
-
Pending Results: No
Hospital Course
Patient 69 years old male with history of morbid obesity, fibromyalgia, diverticulosis, SARA, presented to the hospital right lower extremity erythema consistent with cellulitis. Patient presented with severe cellulitis and antibiotics were adjusted
a couple of times. ID consulted. Patient also had a tick bite and he was given doxycycline x 1. Ultimately he had been on Zyvox and he responded well. ID cleared him for discharge. Patient is doing well and he is going to be discharged in
stable condition today.
Discharge Plan
-
Patient Disposition: Home (Routine Discharge)
Discharge Diagnosis/Procedures: Sepsis due to right lower extremity cellulitis. Tick bite.
Diet: Regular
Activity: As tolerated
Blood Work: Please PCP to order CBC, BMP within 1 week
Activity Restrictions/Additional Instructions:
While on Linezolid, avoid tyramine-rich foods such as aged wine/cheese/salami, pickled foods like sauerkraut/kimchi, etc.
Referrals:
Primary care provider [Other] - in less than 1 week
NONE,* [Family Provider, Internal Medicine]
Carline Ceja MD [Active, Infectious Diseases]
Referral Note: call if no improvement
Prescriptions:
New
linezolid 600 mg Tablet
600 mg PO BID 10 Days Qty: 20 0RF
oxycodone 5 mg Tablet
5 mg PO Q4HPRN PRN (Reason: moderate pain) Qty: 8 0RF
Continued
ascorbic acid (vitamin C) [Vitamin C] 500 MG tablet
1,000 mg PO DAILY
R.N.A.-180 1 TAB tablet
1 tab PO DAILY
cholecalciferol (vitamin D3) [Vitamin D3] 1,000 UNIT capsule
1,000 unit PO BID
coenzyme Q10 [Co Q-10] 100 MG capsule
100 mg PO BID
glucosamine thomas 2KCl-chondroit 1 EACH tablet
2 tab PO BID
Tribulex
2 tab PO DAILY
Electrolyte Formula Unknown Name
6 tab PO DAILY
therapeutic multivitamin Tablet
1 tab PO DAILY
omega-3 fatty acids-fish oil 684-1,200 mg Capsule,Delayed Release(Dr/Ec)
1 cap PO DAILY
fexofenadine 180 mg Tablet
180 mg PO DAILYPRN PRN (Reason: allergies)
naproxen sodium [Aleve] 220 mg Tablet
440 mg PO DAILYPRN PRN (Reason: mild pain)
Discharge Orders:
Discharge Patient (As Directed); Ordered 08/07/24
Ordered By: Robert Mack
Discharge Date and Time
Print Language: BURMESE
--- NOTE | 2024-08-07 11:13 | CM ---
Chart reviewed. Patient stable for d/c. Transition to po abx.
No CM needs identified at this time
Plan: Home, no needs
[2024-08-07 11:26] VITALS: BP 137/83
== END 2024-08-07 12:33 | disposition home or self-care (01) | DRG 872 ==
LOC: 4 WEST ACU 18:11
PROVIDERS: Internal Medicine; Physician Assistant; ADMITTING PHYSICIAN Hospitalist; ATTENDING PHYSICIAN Hospitalist; CONSULT PHYSICIAN Internal Medicine Infectious Disease; EMERGENCY PHYSICIAN Emergency Medicine
PROC: 5A09357 Assistance with Respiratory Ventilation, Less than 24 Consecutive Hours, Continuous Positive Airway Pressure (ICD-10-PCS; 2024-08-02)
DX: A41.9 Sepsis, unspecified organism (principal); L03.115 Cellulitis of right lower limb; W57.XXXA Bitten or stung by nonvenomous insect and other nonvenomous arthropods, initial encounter; G47.33 Obstructive sleep apnea (adult) (pediatric); M79.7 Fibromyalgia; E66.01 Morbid (severe) obesity due to excess calories; Z68.38 Body mass index [BMI] 38.0-38.9, adult; Z86.0100 Personal history of colon polyps, unspecified; M19.071 Primary osteoarthritis, right ankle and foot
CPT/HCPCS: 73630; 80048; 80053; 83605; 84550; 85025; 85027; 85652; 86140; 87040; 94660; 96365; 96366; 96367; 99284